=== PATIENT | male | born 1965 | race Two or more races ===

== ENCOUNTER 2024-06-30 13:25 | Outpatient (CLI) | payer OTHER | END 2024-06-30 13:29 | disposition home or self-care (01) | LOC: EDSEX 13:25 → LAB 13:25 | PROVIDERS: ATTEND Urology | DX: R97.20 Elevated prostate specific antigen [PSA] (principal) ==

== ENCOUNTER 2024-08-25 15:44 | Outpatient (CLI) | payer OTHER | END 2024-08-25 15:48 | disposition home or self-care (01) | LOC: LAB 15:44 | PROVIDERS: ATTEND Urology | DX: R97.20 Elevated prostate specific antigen [PSA] (principal) ==

== ENCOUNTER 2024-10-01 07:37 | Outpatient (CLI) | payer OTHER | END 2024-10-01 07:43 | disposition home or self-care (01) | LOC: SONOGRAMA 07:37 | PROVIDERS: ATTEND Urology | DX: N40.1 Benign prostatic hyperplasia with lower urinary tract symptoms (principal); R97.20 Elevated prostate specific antigen [PSA] ==